=== PATIENT | female | born 2000 | race African-American/Black ===

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

== ENCOUNTER 2022-02-20 03:41 | Emergency (ER) | payer OTHER, SELFPAY ==
--- NOTE | ~2022-02-20 | CT_ITS ---
EXAMINATION: CT abdomen pelvis w con DATE: 02/20/2022 05:22 INDICATION: Right lower quadrant abdominal pain. TECHNIQUE: Computed tomography (CT) of the abdomen and pelvis was performed with 100 mL Omnipaque 350 intravenous contrast. Automated exposure control and iterative reconstruction technique were employe d. The dose-length product was 775.84 mGy-cm. COMPARISON: None. FINDINGS: The visualized portions of the lung bases are clear without pneumonia or pleural effusion. The heart size is normal. No pericardial effusion. There is mild pectus excavatum. The liver, gallbla dder, spleen, pancreas, adrenal glands, and kidneys are normal. There are no dilated loops of bowel. The appendix is normal. There is a 3.1 cm rim-enhancing cyst in left ovary with deformation, likely r uptured. There is a small volume of pelvic ascites. There are no pathologically enlarged lymph nodes. The bones are unremarkable. IMPRESSION: 1. 3.1 cm ruptured cyst in left ovary with small volume of pelvic ascites. Reviewed, dictated and finalized at location A.
[2022-02-20 03:44] VITALS: BP 117/90; PULSE 105; RESP 17; TEMP 36.2; O2SAT 100
--- NOTE | 2022-02-20 04:02 | ED.ABDPAIN ---
HPI - Abdominal Pain General Chief Complaint: Abdominal Pain Stated Complaint: Abd pain Time Seen by Provider: 02/20/22 03:59 History of Present Illness HPI narrative: Patient is a 21-year-old female complaining of right lower quadrant pain, 9 out of 10, sharp, nonradiating, started 30 minutes prior to arrival. Patient denies any nausea, vomiting, diarrhea, urinary symptoms, fever or chills. Related Data Home Medications Medication Instructions Recorded Confirmed etonogestrel 68 mg subdermal See Rx Instructions .Route .COMPLEX 08/21/21 08/21/21 implant (Nexplanon) lactulose 10 gram/15 mL oral 10 g PO PRN PRN Constipation 08/21/21 08/21/21 solution Allergies Allergy/AdvReac Type Severity Reaction Status Date / Time No Known Allergies Allergy Verified 02/20/22 03:46 Review of Systems Review of Systems: All systems reviewed & are unremarkable except as noted in HPI and below Constitutional: Constitutional: Denies body ache(s), Denies chills, Denies excessive sweating, Denies fatigue, Denies fever(s), Denies headache(s), Denies lethargy, Denies malaise, Denies weakness and Denies weight loss Eyes: Eyes: Denies blurry vision, Denies change in vision and Denies loss of vision ENT: Denies dizziness, Denies ear discharge, Denies headache(s), Denies lip swelling, Denies epistaxis, Denies nasal congestion, Denies neck pain, Denies throat swelling and Denies tongue swelling Cardiovascular: Cardiovascular: Denies chest pain, Denies chest pain at rest, Denies chest pain with activity, Denies diaphoresis, Denies rapid heart rate, Denies edema, Denies irregular heart rhythm, Denies lightheadedness, Denies palpitations, Denies dyspnea and Denies dyspnea on exertion Respiratory: Respiratory: Denies chest congestion, Denies cough, Denies hemoptysis, Denies dyspnea and Denies dyspnea on exertion Gastrointestinal: Gastrointestinal: Denies melena, Denies hematochezia, Denies diarrhea, Denies nausea, Denies vomiting and Denies hematemesis Musculoskeletal: Musculoskeletal: Denies abnormal gait, Denies deformity, Denies joint swelling, Denies limited range of motion, Denies neck pain and Denies numbness Neurologic: Denies Abnormal speech present, Denies abnormal gait, Denies confusion, Denies dizziness, Denies headache(s), Denies focal weakness, Denies loss of vision, Denies numbness, Denies Other visual disturbances, Denies Sensory deficit (Neuro) and Denies weakness Psychiatric: Psychiatric: Denies confusion, Denies depression, Denies auditory hallucinations, Denies homicidal ideation and Denies suicidal ideation Endocrine: Endocrine: Denies cold intolerance, Denies excessive sweating, Denies fatigue, Denies heat intolerance and Denies palpitations Hematologic/Lymphatic: Hematologic/Lymphatic: Denies easy bleeding and Denies easy bruising Allergic/Immunologic: Allergic/Immunologic: Denies lip swelling, Denies throat swelling and Denies tongue swelling PMFSH Past Medical History Medical History Healthy female Social History Social History Smoking status: Never smoker Gender identity (if verbalized by the patient): Female Exam Const: General: cooperative, healthy appearing, comfortable, no acute distress, well developed, alert and awake; No confusion Orientation/consciousness: oriented to person, oriented to place, oriented to time, patient oriented x3 and No confusion Limitations: no limitations HENMT: Head: normal to inspection, normocephalic and atraumatic Ears: hearing grossly normal bilaterally, TM normal on the right and TM normal on the left General nose exam: Normal external nose present, Normal nares present and No nasal discharge present Face and sinus: normal facial exam Mouth: Yes Normal oral and palatal mucosa present, Yes lip normal, Yes tongue normal and Yes oropharynx normal Throat: posterior
[2022-02-20 04:09] LABS: Basophils Absolute Auto 0.1 K/mm3 (0.0-0.1); Basophils Percent Auto 0.6 % (0.2-1.2); Eosinophils Absolute Auto 0.1 K/mm3 (0-0.3); Eosinophils Percent Auto 0.9 % (0-4.4); Hematocrit 40.5 % (37.0-47.0); Immature Granulocyte Absolute 0.05 K/mm3 (0.00-0.031); Immature Granulocyte Percent A 0.4 % (0-0.5); Lymphocytes Absolute Auto 4.55 K/mm3 (0.9-3.2); Lymphocytes Percent Auto 36.8 % (18.3-44.2); Mean Corpuscular HGB Conc 32.1 g/dl (32-36); Mean Corpuscular Hemoglobin 27.3 pg (26-34); Mean Corpuscular Volume 85.1 fl (80-100); Mean Platelet Volume 9.5 fl (7.4-10.4); Monocytes Percent Auto 8.3 % (2.6-8.5); Neutrophils Absolute Auto 6.6 K/mm3 (1.3-6.7); Platelet Count Result 353 k/mm3 (150-375); Red Blood Count 4.76 M/mm3 (4.2-5.4); Red Cell Distribution Width 13.3 % (11.5-14.5); White Blood Count 12.4 K/mm3 (4.5-10.0)
[2022-02-20 04:29] LABS: Alanine Aminotransferase 18 U/L (6-35); Albumin Level 4.3 g/dL (3.7-5.6); Alkaline Phosphatase 68 U/L (45-116); Anion Gap 11 mmol/L (8-16); Aspartate Amino Transferase 23 U/L (14-36); Bilirubin,Total 0.3 mg/dL (0.2-1.3); Blood Urea Nitrogen 8 mg/dL (8-21); Calcium 8.8 mg/dL (8.9-10.7); Carbon Dioxide 22 mmol/L (22-30); Chloride 104 mmol/L (98-107); Estimated Glomerular Filt Rate > 60; Glucose 106 mg/dL (65-110); Lipase 58 U/L (23-300); Potassium 4.1 mmol/L (3.4-5.0); Sodium 137 mmol/L (134-143)
[2022-02-20] MEDS: KETOROLAC 30 MG/ML VIAL (*BKC) IV PUSH (04:34)
[2022-02-20 04:56] VITALS: BP 133/86; PULSE 97; RESP 18; O2SAT 97
--- NOTE | 2022-02-20 05:03 | PC.NURSE ---
Pt to CT scan via stretcher at this time.
[2022-02-20 05:23] LABS: Add Urine Microscopic? NO; Appearance Urine Clear (Clear); Bilirubin Urine Negative (Negative); Blood Urine Negative (Negative); Color Urine Yellow (Yellow); Glucose Urine UA Negative (Negative); Ketones Urine Negative (Negative); Leukocyte Esterase Ur Negative LEU/UL (Negative); Nitrate Urine Negative (Negative); Protein Urine Negative (Negative); Specific Grav Ur >= 1.030 (1.001-1.035); Urobilinogen Urine 0.2 mg/dL (<2.0); pH Urine 5.5 (5.0-9.0)
[2022-02-20 05:32] LABS: Bacteria Urine Trace /hpf; Mucus Urine Rare /lpf; RBC Urine 0-2 /hpf (0-2); Squamous Epithelial Cell Urine Many /hpf (Few); WBC Urine 0-3 /hpf
[2022-02-20 06:03] VITALS: BP 123/68; PULSE 80; RESP 15; O2SAT 100
== END 2022-02-20 06:39 | disposition home or self-care (01) ==
LOC: ANHED 04:33
PROVIDERS: Emergency Provider Emergency Medicine; PCP Internal Medicine Gastroenterology
DX: N83.202 Unspecified ovarian cyst, left side (principal)
CPT/HCPCS: 36415; 74177; 80053; 81003; 81025; 83690; 85025; 99284; J1885; Q9967

== ENCOUNTER 2022-05-26 11:28 | Emergency (ER) | payer OTHER, SELFPAY ==
[2022-05-26 11:39] VITALS: BP 135/75; PULSE 79; RESP 20; TEMP 36.2; O2SAT 100
--- NOTE | 2022-05-26 12:16 | ED.URI ---
HPI - URI/Sore Throat General Chief Complaint: Upper Respiratory Infection Stated Complaint: Sore Throat,Shortness Of Breath Time Seen by Provider: 05/26/22 11:45 Source: patient Mode of arrival: ambulatory Limitations: no limitations History of Present Illness HPI Narrative: Ms. Welsh is a 22-year-old female patient presenting to clinic today with complaints of sore throat, cough, and nasal congestion causing some shortness of breath. She reports the symptoms have been going on for 2-3 days. She denies any fever or chills. MD elicited complaint: cough, sore throat and nasal congestion Related Data Home Medications Medication Instructions Recorded Confirmed etonogestrel 68 mg subdermal See Rx Instructions .Route .COMPLEX 08/21/21 05/26/22 implant (Nexplanon) lactulose 10 gram/15 mL oral 10 g PO PRN PRN Constipation 05/26/22 05/26/22 solution Allergies Allergy/AdvReac Type Severity Reaction Status Date / Time No Known Allergies Allergy Verified 05/26/22 11:41 Review of Systems Review of Systems: Pertinent positives per HPI. Patient denies any fever, chills, rash, headache, visual changes, dizziness, shortness of breath, chest pain, palpitations, nausea, vomiting, diarrhea, constipation, abdominal pain, or any urinary issues. [facility] Past Medical History Medical History Healthy female Social History Social History Smoking status: Never smoker Gender identity (if verbalized by the patient): Female Comments At the time of my signature, I reviewed and agree with the nursing past medical, surgical, social, and family history. There is no relevant family history pertinent to the patient complaint. Exam Narrative: General: Well-developed, well nourished, in no apparent distress Head: Normocephalic, atraumatic Eyes: Pupils equally round and reactive to light bilaterally, EOM intact, sclera and conjunctive clear, no discharge, lids normal Ears: TMs intact and dull, ear canals clear, no drainage, grossly hearing normal. Nose: Nares patent, clear nasal discharge, no inflammation, no sinus tenderness. Mouth: Oral pharynx without lesions or masses, good dentition, MMM. Oropharynx red with tonsillar swelling Neck: Supple, trachea midline, enlargement of anterior cervical nodes, no thyroid masses or goiter palpable. Cardio: Regular rate and rhythm, s1 and s2 normal, no murmur appreciated. Resp: Clear to auscultation bilaterally, no rhonchi, rales, wheezing or rubs Course Course Emergency Course: Portions of this record may have been created with voice recognition software. Level of Care: Express Care Visit Vital Signs Vital signs: Vital Signs Temperature 36.2 C L 05/26/22 11:39 Pulse Rate 79 05/26/22 11:39 Respiratory Rate 20 05/26/22 11:39 Blood Pressure 135/75 05/26/22 11:39 Pulse Oximetry 100 05/26/22 11:39 Oxygen Delivery Room Air 05/26/22 11:39 Temperature 36.2 C L 05/26/22 11:39 Pulse Rate 79 05/26/22 11:39 Respiratory Rate 20 05/26/22 11:39 Blood Pressure 135/75 05/26/22 11:39 Pulse Oximetry 100 05/26/22 11:39 Oxygen Delivery Room Air 05/26/22 11:39 Vital signs reviewed MDM - URI/Sore Throat MDM Narrative Medical decision making narrative: At the time of visit patient is resting comfortably on the exam table. Strep screen was obtained was positive in the clinic today. I will treat the patient with a course of amoxicillin. Supportive measures were discussed with the patient she voiced understanding of discharge instructions and agrees to treatment plan. Differential Diagnosis Differential diagnosis: Likely upper respiratory infection, otitis media, sinusitis, viral infection, bronchitis, influenza, pharyngitis and other (COVID) Discharge Plan Discharge Clinical Impression: Strep pharyngitis Patient Dispositi
== END 2022-05-26 12:20 | disposition home or self-care (01) ==
PROVIDERS: Emergency Provider Nurse Practitioner Family; PCP Internal Medicine Gastroenterology
DX: J02.0 Streptococcal pharyngitis (principal); Z86.16 Personal history of COVID-19
CPT/HCPCS: 87880; 99213; G0463

== ENCOUNTER 2022-09-25 15:09 | Outpatient (CLI) | payer OTHER, SELFPAY ==
--- NOTE | ~2022-09-25 | US_ITS ---
EXAMINATION: US pelvic complete w TV DATE: 09/25/2022 15:49 INDICATION: Left ovarian cyst TECHNIQUE: Multiple transabdominal and endovaginal sonographic images of the pelvis were obtained. COMPARISON: CT, 02/20/2022 FINDINGS: The uterus measures 7.2 x 3.7 x 4.2 cm. The endometrial complex measures 3 mm. The right ov lida measures 4.3 x 2.5 x 2.9 cm. The left ovary measures 4.1 x 1.9 x 1.7 cm. There is normal vascular flow in the ovaries. There is no free fluid in the pelvis. IMPRESSION: 1. Unremarkable pelvic ultrasound. Reviewed, dictated and finalized at location A. [employer] [facility] [employer]
== END 2022-09-25 15:10 | disposition home or self-care (01) ==
PROVIDERS: PCP Internal Medicine Gastroenterology; Visit Provider Physician Assistant
DX: N83.202 Unspecified ovarian cyst, left side (principal)
CPT/HCPCS: 76830; 76856

== ENCOUNTER 2023-03-05 16:25 | Emergency (ER) | payer OTHER, SELFPAY ==
[2023-03-05 16:53] VITALS: BP 133/58; PULSE 96; RESP 18; TEMP 36.6; O2SAT 100
--- NOTE | 2023-03-05 17:13 | ED.BACK ---
HPI - Back Pain/Injury General Chief Complaint: Neck Pain/Injury Stated Complaint: neck and shoulder stiffness Time Seen by Provider: 03/05/23 17:12 Source: patient and RN notes reviewed Mode of arrival: ambulatory Limitations: no limitations History of Present Illness HPI Narrative: 22-year-old female presents concern for left-sided neck and shoulder pain and stiffness. Reports she woke up with the pain this morning. She denies any injury or trauma. She denies weakness in any extremity. She reports neck pain when she moves her left arm. She has not taken any medication or other intervention today. She reports this has never happened to her before this badjuanita MD elicited complaint: other (neck pain) Related Data Home Medications Medication Instructions Recorded Confirmed lactulose 10 gram/15 mL oral 15 ml PO DAILY 03/05/23 03/05/23 solution Allergies Allergy/AdvReac Type Severity Reaction Status Date / Time No Known Allergies Allergy Verified 03/05/23 17:01 Review of Systems Review of Systems: CONSTITUTIONAL: Denies malaise, chills, sweats, or fever. CARDIOVASCULAR: Denies chest pain, palpitations, or edema. SKIN: Denies rash or itching. MUSCULOSKELETAL: Reports left-sided neck pain NEUROLOGIC: Denies numbness, weakness, or headache. All systems reviewed & are unremarkable except as noted in HPI and below PMFSH Past Medical History Medical History Healthy female Social History Social History Smoking status: Never smoker Gender identity (if verbalized by the patient): Female Comments At time of signature, agree with nursing past medical, surgical, social and family history. There is no relevant family history pertinent to the presenting complaint Exam Narrative: GENERAL: Well-appearing, well-nourished, and in no acute distress. HEAD: Normocephalic, atraumatic. EYES: PERRLA and EOMI. NECK: Supple. No lymphadenopathy. CHEST: Speaks in full sentences no respiratory distress. HEART: Regular rate and rhythm. Distal pulses palpable and equal, cap refill <3 seconds MUSCULOSKELETAL: Normal range of motion and strength in upper extremity. Normal sensation in dermatomal distributions with sensitivity to light touch and pain. No midline neck tenderness to palpation. No paraspinal tenderness. Transfers from sitting to standing. SKIN: Warm, dry, no rash. No ecchymosis, erythema, open wounds to neck. NEURO: No focal deficits. Alert and oriented x3. PSYCH: Normal mood and affect Course Course Emergency Course: Patient is aware of diagnosis, understands and agrees to treatment plan. Anticipatory guidance given. Patient agrees to follow-up as directed and is aware of reasons to seek care at the emergency department. Portions of this record may have been created with voice recognition software Level of Care: Express Care Visit Vital Signs Vital signs: Vital Signs Temperature 97.9 F 03/05/23 16:53 Pulse Rate 96 03/05/23 16:53 Respiratory Rate 18 03/05/23 16:53 Blood Pressure 133/58 L 03/05/23 16:53 Pulse Oximetry 100 03/05/23 16:53 Oxygen Delivery Room Air 03/05/23 16:53 Temperature 97.9 F 03/05/23 16:53 Pulse Rate 96 03/05/23 16:53 Respiratory Rate 18 03/05/23 16:53 Blood Pressure 133/58 L 03/05/23 16:53 Pulse Oximetry 100 03/05/23 16:53 Oxygen Delivery Room Air 03/05/23 16:53 Reviewed. MDM - Back Pain/Injury MDM Narrative Medical decision making narrative: Patients pain is consistent with musculoskeletal etiology. No signs of neurological or vascular compromise on exam. Compartments and tissues are soft without signs of compartment syndrome. Pain is felt appropriate for further evaluation on an outpatient basis. Critical Care Time Critical Care Time Critical Care Time: No Discharge Plan Discharge Clinical Impre
== END 2023-03-05 17:30 | disposition home or self-care (01) ==
PROVIDERS: Emergency Provider Nurse Practitioner; PCP Internal Medicine Gastroenterology
DX: M43.6 Torticollis (principal)
CPT/HCPCS: 99213; G0463

== ENCOUNTER 2023-07-13 12:21 | Outpatient (CLI) | payer OTHER, SELFPAY ==
--- NOTE | ~2023-07-13 | XR_ITS ---
EXAMINATION: XR sinus min 3V INDICATION: Wheezing, paranasal sinus congestion TECHNIQUE: Five views of the paranasal sinuses are obtained. COMPARISON: None available FINDINGS: The frontal sinuses are hypoplastic. No definite opacification of the paranasal sinuses is identified. The facial bones are unremarkable. The soft tissues appear normal. IMPRESSION: 1. No definite evidence of sinus disease. If there is high clinical suspicion for sinus disease, CT o f the sinuses would be recommended. Reviewed, dictated and finalized at location B. IOLOGY RN IMPRESSION: 1. No definite evidence of sinus disease. If there is high clinical suspicion f or sinus disease, CT of the sinuses would be recommended.
--- NOTE | ~2023-07-13 | XR_ITS ---
Clinical Indication: Wheezing PA and lateral views of the chest: Comparison: 10/24/2019 Findings: The lungs are clear, without evidence of focal consolidation or pleural effusion. Cardiome diastinal silhouette is within normal limits. Bones and soft tissues are unremarkable. Impression: Normal chest. Reviewed, dictated and finalized at [facility]. ERY HAND Impression: Normal chest.
== END 2023-07-13 12:22 | disposition home or self-care (01) ==
PROVIDERS: PCP Internal Medicine Gastroenterology; Visit Provider Internal Medicine Gastroenterology
DX: R06.2 Wheezing (principal)
CPT/HCPCS: 70220; 71046

== ENCOUNTER 2023-07-21 09:27 | Emergency (ER) | payer OTHER, SELFPAY ==
[2023-07-21 09:36] VITALS: BP 139/63; PULSE 87; RESP 18; TEMP 35.9; O2SAT 99
--- NOTE | 2023-07-21 10:14 | ED.URI ---
HPI - URI/Sore Throat General Chief Complaint: Upper Respiratory Infection Stated Complaint: Sinus/Ears Irritation Time Seen by Provider: 07/21/23 10:06 Source: patient and RN notes reviewed Mode of arrival: ambulatory Limitations: no limitations History of Present Illness HPI Narrative: Patient presents today with a 3 day history of nasal congestion and sinus pressure, cough, rhinorrhea. Denies fever, shortness of breath, sore throat. Denies known sick contacts. She has been taking Sudafed, NyQuil, and Flonase with little relief. Related Data Home Medications Medication Instructions Recorded Confirmed lactulose 10 gram/15 mL oral 15 ml PO DAILY 03/05/23 07/21/23 solution norethindrone 1 mg-ethinyl 1 tablet PO DAILY 07/21/23 07/21/23 estradiol 10 mcg (24)-iron 10 mcg(2) tablet (Lo Loestrin Fe) Allergies Allergy/AdvReac Type Severity Reaction Status Date / Time No Known Allergies Allergy Verified 07/21/23 09:52 Review of Systems Review of Systems: CONSTITUTIONAL: Denies body aches, fever, chills, or sweats. EYES: Denies visual changes, redness, or discharge. ENT: Denies sore throat, or otalgia.+ sinus pressure, congestion, rhinorrhea CARDIOVASCULAR: Denies chest pain, palpitations, or edema. RESPIRATORY: Denies dyspnea.+ cough GASTROINTESTINAL: Denies abdominal pain, nausea, vomiting, or diarrhea. GENITOURINARY: Denies dysuria or hematuria. SKIN: Denies rash, itching, or wounds. MUSCULOSKELETAL: Denies back pain, joint pain, or myalgia. NEUROLOGIC: Denies headache, numbness, tingling, or weakness. PSYCH: Denies depression or anxiety. [facility] Past Medical History Medical History Healthy female Social History Social History Smoking status: Never smoker Gender identity (if verbalized by the patient): Female Comments At time of signature, I have reviewed and agree with nursing past medical, surgical, social and family history unless otherwise noted. Please see nursing chart for further information. There is no relevant family history pertinent to the presenting complaint Exam Narrative: GENERAL: Mildly-appearing, well-nourished, and in no acute distress. HEAD: Normocephalic, atraumatic. EYES: EOMI. No redness or drainage. Conjunctivae normal. ENT: Mucous membranes pink and moist. Nares severely congested. No rhinorrhea. TMs normal bilaterally. Throat normal. Uvula midline. NECK: Normal AROM. Supple. No lymphadenopathy. CHEST: No respiratory distress. Clear to auscultation. HEART: Regular rate and rhythm. No murmur appreciated. EXTREMITIES: Normal range of motion. No edema. SKIN: Warm, dry, no rash. Capillary refill normal. Normal skin turgor. NEURO: No focal deficits. Alert and oriented x3. Gait steady. PSYCH: Normal affect. No signs of depression or anxiety. Course Course Level of Care: Express Care Visit Vital Signs Vital signs: Vital Signs Temperature 96.6 F L 07/21/23 09:36 Pulse Rate 87 07/21/23 09:36 Respiratory Rate 18 07/21/23 09:36 Blood Pressure 139/63 07/21/23 09:36 Pulse Oximetry 99 07/21/23 09:36 Oxygen Delivery Room Air 07/21/23 09:36 Temperature 96.6 F L 07/21/23 09:36 Pulse Rate 87 07/21/23 09:36 Respiratory Rate 18 07/21/23 09:36 Blood Pressure 139/63 07/21/23 09:36 Pulse Oximetry 99 07/21/23 09:36 Oxygen Delivery Room Air 07/21/23 09:36 Reviewed MDM - URI/Sore Throat MDM Narrative Medical decision making narrative: Influenza and COVID negative. Symptoms likely viral in etiology discussed [id number] treatment and duration of illness. Anticipatory guidance given Differential Diagnosis Differential diagnosis: Likely upper respiratory infection, sinusitis, viral infection, influenza and other (COVID-19) Lab Data Attestation: I reviewed the patient's lab results. Lab results
== END 2023-07-21 10:41 | disposition home or self-care (01) ==
PROVIDERS: Emergency Provider Nurse Practitioner; PCP Internal Medicine Gastroenterology
DX: J06.9 Acute upper respiratory infection, unspecified (principal); Z20.822 Contact with and (suspected) exposure to COVID-19
CPT/HCPCS: 87426; 87804; 99213; C9803; G0463

== ENCOUNTER 2023-08-20 22:02 | Emergency (ER) | payer OTHER, SELFPAY ==
[2023-08-20 22:20] VITALS: BP 116/67; PULSE 74; RESP 16; TEMP 36.8; O2SAT 100
--- NOTE | 2023-08-20 22:22 | PC.NURSE ---
This RN unable to obtain urine sample at this time, as pt states she is unable to stand/ambulate due to pain. Pt resting in wheelchair, in no obvious distress.
[2023-08-20 22:30] LABS: Basophils Absolute Auto 0.1 K/mm3 (0.0-0.1); Basophils Percent Auto 0.6 % (0.2-1.2); Eosinophils Absolute Auto 0.3 K/mm3 (0-0.3); Eosinophils Percent Auto 2.4 % (0-4.4); Hematocrit 37.2 % (37.0-47.0); Hemoglobin 12.1 g/dL (12.0-15.0); Immature Granulocyte Absolute 0.07 K/mm3 (0.00-0.031); Immature Granulocyte Percent A 0.5 % (0-0.5); Lymphocytes Absolute Auto 4.21 K/mm3 (0.9-3.2); Lymphocytes Percent Auto 30.3 % (18.3-44.2); Mean Corpuscular HGB Conc 32.5 g/dl (32-36); Mean Corpuscular Hemoglobin 27.6 pg (26-34); Mean Corpuscular Volume 84.9 fl (80-100); Mean Platelet Volume 9.5 fl (7.4-10.4); Monocytes Absolute Auto 1.1 K/mm3 (0.1-0.6); Monocytes Percent Auto 8.1 % (2.6-8.5); Neutrophils Absolute Auto 8.1 K/mm3 (1.3-6.7); Neutrophils Percent Auto 58.1 % (45.5-73.1); Platelet Count Result 314 k/mm3 (150-375); Red Blood Count 4.38 M/mm3 (4.2-5.4); Red Cell Distribution Width 13.1 % (11.5-14.5); White Blood Count 13.9 K/mm3 (4.5-10.0)
[2023-08-20 22:40] LABS: Alanine Aminotransferase 18 U/L (6-35); Albumin Level 3.8 g/dL (3.5-5.1); Alkaline Phosphatase 53 U/L (38-126); Anion Gap 8 mmol/L (8-16); Aspartate Amino Transferase 21 U/L (14-36); Bilirubin,Total 0.3 mg/dL (0.2-1.3); Blood Urea Nitrogen 16 mg/dL (7-17); Calcium 8.8 mg/dL (8.4-10.2); Carbon Dioxide 21 mmol/L (22-30); Chloride 105 mmol/L (98-107); Estimated CRCL calculation 100 ml/min; Estimated Glomerular Filt Rate > 60; Glucose 102 mg/dL (65-110); Lipase 69 U/L (23-300); Potassium 3.6 mmol/L (3.4-5.0); Sodium 134 mmol/L (137-145)
--- NOTE | 2023-08-20 23:26 | PC.NURSE ---
Patient requested for the IV placed by EMS to be taken out. States that she does not want to wait to be moved to a room.
== END 2023-08-20 23:26 | disposition left against medical advice (07) ==
LOC: ANHED 23:32
PROVIDERS: Emergency Provider Emergency Medicine; PCP Internal Medicine Gastroenterology
DX: R10.32 Left lower quadrant pain (principal)
CPT/HCPCS: 36415; 80053; 83690; 85025; 99199

== ENCOUNTER 2023-09-30 11:02 | Emergency (ER) | payer OTHER, SELFPAY ==
[2023-09-30 11:21] VITALS: BP 134/89; PULSE 85; RESP 16; TEMP 36.4; O2SAT 100
--- NOTE | 2023-09-30 11:34 | ED.URI ---
HPI - URI/Sore Throat General Chief Complaint: Upper Respiratory Infection Stated Complaint: headache,throat hurts, hurts to swallow Time Seen by Provider: 09/30/23 11:34 History of Present Illness HPI Narrative: 23 y/o female presented for c/o sore throat x1 week. Endorses mild nasal congestion, headache, and cough. Taking Dayquil for symptoms. denies sob, wheezing, n/v/d/f/c. Related Data Home Medications Medication Instructions Recorded Confirmed lactulose 10 gram/15 mL oral 15 ml PO DAILY 03/05/23 07/21/23 solution norethindrone 1 mg-ethinyl 1 tablet PO DAILY 07/21/23 09/30/23 estradiol 10 mcg (24)-iron 10 mcg(2) tablet (Lo Loestrin Fe) Allergies Allergy/AdvReac Type Severity Reaction Status Date / Time No Known Allergies Allergy Verified 09/30/23 11:16 Review of Systems Review of Systems: CONSTITUTIONAL: Denies body aches, fever, chills, or sweats. EYES: Denies visual changes, redness, or discharge. ENT: reports sore throat, rhinorrhea, congestion, denies otalgia. CARDIOVASCULAR: Denies chest pain, palpitations, or edema. RESPIRATORY: reports cough Denies dyspnea. GASTROINTESTINAL: Denies abdominal pain, nausea, vomiting, or diarrhea. SKIN: Denies rash, itching, or wounds. MUSCULOSKELETAL: Denies back pain, joint pain, or myalgia. NEUROLOGIC: Denies headache PMFSH Past Medical History Medical History Healthy female Social History Social History Smoking status: Never smoker Gender identity (if verbalized by the patient): Female Exam Narrative: GENERAL: mildly Ill-appearing, no acute distress. EYES: conjunctivae clear ENT: Mucous membranes moist. TMs pearly gonsales with normal light reflex bilaterally; no tragal tenderness. Oropharynx mildly erythematous without lesions. Tonsils enlarged 2+ and without exudate. No drooling, no hoarseness, no trismus, uvula midline. No tripod positioning, hot potato voice, or soft palate swelling. NECK: Supple. No lymphadenopathy CHEST: Clear to auscultation, breath sounds equal. No respiratory distress, speaks in full sentences. HEART: Regular rate and rhythm. No murmur heard. SKIN: Warm, dry, no rash. NEURO: Alert and oriented x3. Course Course Emergency Course: Patient is aware of diagnosis, understands and agrees to treatment plan. Anticipatory guidance given. Patient agrees to follow-up as directed and is aware of reasons to seek care at the emergency department. Portions of this record may have been created with voice recognition software Level of Care: Express Care Visit Vital Signs Vital signs: Vital Signs Temperature 97.5 F L 09/30/23 11:21 Pulse Rate 85 09/30/23 11:21 Respiratory Rate 16 09/30/23 11:21 Blood Pressure 134/89 09/30/23 11:21 Pulse Oximetry 100 09/30/23 11:21 Temperature 97.5 F L 09/30/23 11:21 Pulse Rate 85 09/30/23 11:21 Respiratory Rate 16 09/30/23 11:21 Blood Pressure 134/89 09/30/23 11:21 Pulse Oximetry 100 09/30/23 11:21 MDM - URI/Sore Throat MDM Narrative Medical decision making narrative: POS strep result reviewed with pt. Advise supportive treatments. Patient is appropriate for outpatient treatment and follow-up. Differential Diagnosis Differential diagnosis: Likely upper respiratory infection, viral infection and pharyngitis Discharge Plan Discharge Clinical Impression: Strep pharyngitis Patient Disposition: Home, Self-Care Condition: Stable Instructions: Antibiotic Form, Strep Throat (ED) Additional Instructions: - Take the antibiotic as directed. Fever and sore throat typically resolve within one to three days. Most patients can return to work, after 12 to 24 hours of antibiotic therapy, provided you are fever free and otherwise well. -Eat and drink things that are easy to swallow, like soft foods, cool liquids, tea with h
== END 2023-09-30 11:44 | disposition home or self-care (01) ==
PROVIDERS: Emergency Provider Nurse Practitioner Family; PCP Internal Medicine Gastroenterology
DX: J02.0 Streptococcal pharyngitis (principal); Z20.822 Contact with and (suspected) exposure to COVID-19
CPT/HCPCS: 87426; 87804; 87880; 99213; G0463

== ENCOUNTER 2023-12-25 08:25 | Emergency (ER) | payer OTHER, SELFPAY ==
--- NOTE | 2023-12-25 08:28 | ED.URI ---
HPI - URI/Sore Throat General Chief Complaint: Upper Respiratory Infection Stated Complaint: sob and throat pain Time Seen by Provider: 12/25/23 08:36 Source: patient and RN notes reviewed Mode of arrival: ambulatory Limitations: no limitations History of Present Illness HPI Narrative: 23-year-old female presents with concern for 3 day history of cough, chest congestion, headache, sore throat, wheezing. She denies any history of asthma. She denies fever, body aches, chills, sweats. She denies taking any [id number] medication. MD elicited complaint: cough and sore throat Related Data Home Medications Medication Instructions Recorded Confirmed norethindrone 1 mg-ethinyl 1 tablet PO DAILY 07/21/23 12/25/23 estradiol 10 mcg (24)-iron 10 mcg(2) tablet (Lo Loestrin Fe) Allergies Allergy/AdvReac Type Severity Reaction Status Date / Time No Known Allergies Allergy Verified 12/25/23 08:30 Review of Systems Review of Systems: CONSTITUTIONAL: Denies malaise, chills, sweats, or fever. EYES: Denies visual changes, redness, or discharge. ENT: Reports sore throat. CARDIOVASCULAR: Denies chest pain, palpitations, or edema. RESPIRATORY: Reports cough, chest congestion, wheezing, dyspnea. GASTROINTESTINAL: Denies abdominal pain, nausea, vomiting, diarrhea SKIN: Denies rash or itching. MUSCULOSKELETAL: Denies myalgia. NEUROLOGIC: Reports headache. All systems reviewed & are unremarkable except as noted in HPI and below PMFSH Past Medical History Medical History Healthy female Social History Social History Smoking status: Never smoker Gender identity (if verbalized by the patient): Female Comments At time of signature, agree with nursing past medical, surgical, social and family history. There is no relevant family history pertinent to the presenting complaint Exam Narrative: GENERAL: Well-appearing, well-nourished, and in no acute distress. HEAD: Normocephalic EYES: PERRLA, conjunctivae clear ENT: Nares clear. Mucous membranes moist. TM pearly gonsales with dull light reflex bilaterally; no tragal tenderness. Oropharynx erythematous without lesions. Tonsils not enlarged and without exudate, no drooling, no hoarseness, no trismus, uvula midline. NECK: Supple. No lymphadenopathy CHEST: Inspiratory and expiratory wheeze throughout, aeration fair, breath sounds equal. No rhonchi, rales, or stridor. No respiratory distress, speaks in full sentences. HEART: Regular rate and rhythm. No murmur heard. SKIN: Warm, dry, no rash. NEURO: Alert and oriented x3. PSYCH: Normal mood and affect Course Course Emergency Course: Patient is aware of diagnosis, understands and agrees to treatment plan. Anticipatory guidance given. Patient agrees to follow-up as directed and is aware of reasons to seek care at the emergency department. Portions of this record may have been created with voice recognition software Level of Care: Express Care Visit Reevaluation(s) Reevaluation #1: Improved lung sounds, improved aeration after DuoNeb Date: 12/25/23 Time: 09:16 Vital Signs Vital signs: Reviewed. MDM - URI/Sore Throat MDM Narrative Medical decision making narrative: Differential diagnosis considered: Crum virus, strep pharyngitis, allergic rhinitis, upper respiratory tract infection, sinusitis, rhinosinusitis, nasopharyngitis. viral pharyngitis, otitis media, otitis externa, pneumonia, bronchitis, viral cough syndrome, viral syndrome, and influenza. Exam findings show no acute concerns or changes; patient is non-toxic appearing and is in no distress. Patient is appropriate for outpatient treatment and follow-up. Lab Data Attestation: I reviewed the patient's lab results. Critical Care Time Critical Care Time Critical Care Time: No Discharge Plan Discharge Clinical Impression: Bronchitis Patien
[2023-12-25 08:35] VITALS: BP 128/76; PULSE 92; RESP 16; TEMP 36.1; O2SAT 98
[2023-12-25 08:46] VITALS: PULSE 92; RESP 18; O2SAT 98
[2023-12-25] MEDS: IPRATROPIUM 0.5 MG/ALBUTEROL SULFATE 2.5 MG AMPUL.NEB 3 ML INHALATION (08:46)
[2023-12-25 08:59] VITALS: PULSE 98; RESP 18; O2SAT 98
== END 2023-12-25 09:15 | disposition home or self-care (01) ==
PROVIDERS: Emergency Provider Nurse Practitioner; PCP Internal Medicine Gastroenterology
DX: J40 Bronchitis, not specified as acute or chronic (principal)
CPT/HCPCS: 87081; 87880; 94640; 99213; G0463

== ENCOUNTER 2024-02-08 14:34 | Emergency (ER) | payer OTHER, SELFPAY ==
--- NOTE | 2024-02-08 14:50 | ED.URI ---
HPI - URI/Sore Throat General Chief Complaint: Upper Respiratory Infection Stated Complaint: chills,bodyache Time Seen by Provider: 02/08/24 14:50 Source: patient Mode of arrival: ambulatory Limitations: no limitations History of Present Illness HPI Narrative: Salma is a 23-year-old female who presents to the clinic today with complaints of fevers, chills, and body aches for 2-3 days. She denies any known sick contacts. She has been taking ibuprofen for her body aches with minimal improvement. She also reports nausea, vomiting, and right lower back pain. MD elicited complaint: sore throat and nasal congestion Related Data Home Medications Medication Instructions Recorded Confirmed norethindrone 1 mg-ethinyl 1 tablet PO DAILY 07/21/23 12/25/23 estradiol 10 mcg (24)-iron 10 mcg(2) tablet (Lo Loestrin Fe) Allergies Allergy/AdvReac Type Severity Reaction Status Date / Time No Known Allergies Allergy Verified 12/25/23 08:30 Review of Systems Review of Systems: Pertinent positives per HPI. Patient denies any rash, visual changes, dizziness, cough, shortness of breath, chest pain, palpitations, diarrhea, constipation, or abdominal pain PMFSH Past Medical History Medical History Healthy female Social History Social History Smoking status: Never smoker Gender identity (if verbalized by the patient): Female Comments At the time of my signature, I reviewed and agree with the nursing past medical, surgical, social, and family history. There is no relevant family history pertinent to the patient complaint. Exam Narrative: General: Well-developed, well nourished, in no apparent distress Head: Normocephalic, atraumatic Eyes: Pupils equally round, EOM intact, sclera and conjunctive clear, no discharge, lids normal Nose: Nares patent, no discharge Neck: Supple, trachea midline Cardio: Regular rate and rhythm, s1 and s2 normal, no murmur appreciated. Resp: Clear to auscultation bilaterally, no rhonchi, rales, wheezing or rubs Abdomen: Normal bowel sounds, no abdominal tenderness, right CVA tenderness to percussion Course Course Emergency Course: Portions of this record may have been created with voice recognition software. Level of Care: Express Care Visit Vital Signs Vital signs: Vital Signs Temperature 38.3 C H 02/08/24 14:57 Pulse Rate 120 H 02/08/24 14:57 Respiratory Rate 20 02/08/24 14:57 Blood Pressure 147/73 H 02/08/24 14:57 Pulse Oximetry 100 02/08/24 14:57 Oxygen Delivery Room Air 02/08/24 14:57 Temperature 38.3 C H 02/08/24 15:39 Pulse Rate 120 H 02/08/24 14:57 Respiratory Rate 20 02/08/24 14:57 Blood Pressure 147/73 H 02/08/24 14:57 Pulse Oximetry 100 02/08/24 14:57 Oxygen Delivery Room Air 02/08/24 14:57 Vital signs reviewed MDM - URI/Sore Throat MDM Narrative Medical decision making narrative: At the time of visit patient is resting uncomfortably on the exam table. Patient is ill appearing but in no acute distress. Labs: COVID, flu, and strep test were obtained and negative we will send strep for culture. Urinalysis is negative for any sign of infection. Plan: I suspect patient has viral syndrome. Supportive measures were discussed with the patient and they voiced understanding discharge instructions and agrees to treatment plan. Return precautions reviewed Differential Diagnosis Differential diagnosis: Likely upper respiratory infection, otitis media, sinusitis, viral infection, bronchitis, influenza, pharyngitis and other (Urinary tract infection) Lab Data Labs: Lab Results 02/08/24 02/08/24 02/08/24 Range/Units 15:05 15:21 16:10 POC Urine Color Yellow POC Urine Clarity Clear POC Urine pH 7.5 POC Ur Specif [place] 1.020 POC Urine Protein Negative POC Ur Glucose (U
[2024-02-08 14:57] VITALS: BP 147/73; PULSE 120; RESP 20; TEMP 38.3; O2SAT 100
[2024-02-08 15:23] LABS: EDINFLUASCREEN Negative; EDINFLUBSCREEN Negative
[2024-02-08 15:39] VITALS: TEMP 38.3
[2024-02-08] MEDS: ACETAMINOPHEN 500 MG TABLET 1000 MG PO (15:39)
[2024-02-08 16:13] LABS: EDSTREPNEGPOS1 Presumptive Negative; EDUAAPPEAR Clear; EDUABILI Negative; EDUABLOOD Negative; EDUACOLOR1 Yellow; EDUAGLUCOSE Negative; EDUAKETONE Negative; EDUALEUKO Negative; EDUANITRATE Negative; EDUAPH 7.5; EDUAPROTEIN Negative
[2024-02-08 16:29] VITALS: TEMP 36.6
== END 2024-02-08 16:29 | disposition home or self-care (01) ==
PROVIDERS: Emergency Provider Nurse Practitioner Family; PCP Internal Medicine Gastroenterology
DX: B34.9 Viral infection, unspecified (principal); Z20.822 Contact with and (suspected) exposure to COVID-19
CPT/HCPCS: 81003; 81025; 87081; 87426; 87804; 87880; 99213; A9270; G0463

== ENCOUNTER 2024-04-03 08:02 | Emergency (ER) | payer OTHER, SELFPAY ==
--- NOTE | 2024-04-03 08:09 | ED.URI ---
HPI - URI/Sore Throat General Chief Complaint: Upper Respiratory Infection Stated Complaint: strep symptoms Time Seen by Provider: 04/03/24 08:13 Source: patient, RN notes reviewed and old records reviewed Mode of arrival: ambulatory Limitations: no limitations History of Present Illness HPI Narrative: [age] year female to [facility] for complaint of sore, scratchy throat that started this morning. Patient has not attempted to treat at home. Patient hypertensive in triage. patient states that her boyfriend is currently being treated for pneumonia and was just discharged from a 2 week hospitalization. Patient is concerned about having something that is contagious and being around him. Patient requesting strep throat test. Patient denies difficulty swallowing, shortness of breath, fever, GI complaints, headache, ear pain, allergies, pertinent medical history. Patient able to tolerate fluids by mouth. Respirations even and nonlabored. Patient resting in exam room in no acute distress. Related Data Home Medications Medication Instructions Recorded Confirmed norethindrone 1 mg-ethinyl 1 tablet PO DAILY 07/21/23 04/03/24 estradiol 10 mcg (24)-iron 10 mcg(2) tablet (Lo Loestrin Fe) linaclotide 290 mcg capsule 290 mcg DIRECTED 04/03/24 04/03/24 (Linzess) Allergies Allergy/AdvReac Type Severity Reaction Status Date / Time No Known Allergies Allergy Verified 12/25/23 08:30 Review of Systems Review of Systems: All systems reviewed & are unremarkable except as noted in HPI and below Constitutional: Constitutional: Reports no additional constitutional complaints Eyes: Eyes: Reports no additional eye complaints ENT: Reports as per HPI and Reports sore throat Cardiovascular: Cardiovascular: Reports no additional cardiovascular complaints, Denies chest pain and Denies dyspnea Respiratory: Respiratory: Reports no additional respiratory complaints, Denies cough and Denies dyspnea Musculoskeletal: Musculoskeletal: Reports no additional musculoskeletal complaints Neurologic: Reports system reviewed and no additional complaints, except as documented Psychiatric: Psychiatric: Reports no additional psychiatric complaints PMFSH Past Medical History Medical History Healthy female Social History Social History Smoking status: Never smoker Gender identity (if verbalized by the patient): Female Comments At the time of my signature, I reviewed and agree with the nursing past medical, surgical, social, and family history. There is no relevant family history pertinent to the patient complaint. Exam Const: General: cooperative, healthy appearing, comfortable, no acute distress, alert and well nourished Nutritional Appearance: well nourished Orientation/consciousness: patient oriented x3 Limitations: no limitations HENMT: Head: normal to inspection Ears: external ears normal Face/Nose/Sinus: Normal external nose present, Normal nares present, normal facial exam, No erythema and No edema Face and sinus: normal facial exam, no erythema and no edema Mouth: Yes Normal oral and palatal mucosa present Throat: posterior oropharynx abnormal erythema Eyes: General: appearance normal, both eyes and all related structures Neck: Neck: normal visual inspection, full ROM and no meningeal signs Lymphatic: no lymphadenopathy noted and no lymphedema noted Chest: Chest palpation & inspection: normal inspection of the chest Resp: Effort & Inspection: normal respiratory effort and able to speak in complete sentences Auscultation: clear to auscultation bilaterally Cardio: Jugular venous distension: no JVD Rate: regular rate Rhythm: regular rhythm Back/Spine/Pelvis: Cervical Spine: cervical ROM normal Skin: General skin exam: normal color, no rashes or lesions noted and turgor normal Neuro: General:
[2024-04-03 08:11] VITALS: BP 142/63; PULSE 97; RESP 18; TEMP 36.1; O2SAT 100
[2024-04-03 08:35] LABS: EDSTREPNEGPOS1 Negative (Negative)
== END 2024-04-03 08:40 | disposition home or self-care (01) ==
PROVIDERS: Emergency Provider Nurse Practitioner Family; PCP Internal Medicine
DX: J02.9 Acute pharyngitis, unspecified (principal)
CPT/HCPCS: 87081; 87880; 99213; G0463

== ENCOUNTER 2024-04-06 10:01 | Emergency (ER) | payer OTHER, SELFPAY ==
[2024-04-06 10:09] VITALS: BP 125/72; PULSE 91; RESP 18; TEMP 36.2; O2SAT 100
[2024-04-06 10:39] LABS: EDINFLUASCREEN Negative (Negative); EDINFLUBSCREEN Negative (Negative)
[2024-04-06 10:39] LABS: EDCOVIDSCREEN Positive (Negative)
--- NOTE | 2024-04-06 10:48 | ED.URI ---
HPI - URI/Sore Throat General Chief Complaint: Upper Respiratory Infection Stated Complaint: headache/ sore throat/ cough/ bodyache Source: patient Mode of arrival: ambulatory Limitations: no limitations History of Present Illness HPI Narrative: 24-year-old female presents to [facility] with complaints of 4 day history of sore throat, cough, congestion, runny nose, body aches and chills. Patient has been taking [id number] Mucinex with little relief. Patient denies fever, nausea vomiting or diarrhea. Patient was evaluated here 4 days ago, had negative strep test completed at that time and was diagnosed with a viral illness. MD elicited complaint: cough, rhinorrhea and nasal congestion Onset (ago): day(s) (4) Able to tolerate fluids by mouth: Yes Treatments prior to arrival: cold medicine Related Data Home Medications Medication Instructions Recorded Confirmed norethindrone 1 mg-ethinyl 1 tablet PO DAILY 07/21/23 04/03/24 estradiol 10 mcg (24)-iron 10 mcg(2) tablet (Lo Loestrin Fe) linaclotide 290 mcg capsule 290 mcg DIRECTED 04/03/24 04/03/24 (Linzess) multivit with minerals-iron 18 tablet PO 04/06/24 mg-folic ac 400 mcg-vit K 25 mcg tablet (Adults Multivitamin) Allergies Allergy/AdvReac Type Severity Reaction Status Date / Time No Known Allergies Allergy Verified 04/06/24 10:12 Review of Systems Constitutional: Constitutional: Reports chills, Reports fatigue, Denies fever(s) and Denies weakness ENT: Denies vertigo, Denies dizziness, Denies epistaxis, Reports nasal congestion and Reports sore throat Cardiovascular: Cardiovascular: Denies chest pain Respiratory: Respiratory: Reports cough, Denies dyspnea and Denies wheezing Gastrointestinal: Gastrointestinal: Denies diarrhea, Denies nausea and Denies vomiting Integumentary/Breasts: Skin/Breast: Denies erythema and Denies rash Neurologic: Denies syncope and Denies headache(s) [facility] Past Medical History Medical History Healthy female Social History Social History Smoking status: Never smoker Gender identity (if verbalized by the patient): Female Comments At time of signature, I agree with nursing past medical, surgical, social and family history. There is no relevant family history pertinent to the presenting complaint. Exam Const: General: healthy appearing and no acute distress Nutritional Appearance: well nourished Orientation/consciousness: patient oriented x3 Limitations: no limitations HENMT: Head: normal to inspection Ears: external ears normal, TM's normal bilaterally and EAC's normal Face/Nose/Sinus: Normal external nose present Face and sinus: normal facial exam Mouth: Yes Normal oral and palatal mucosa present, Yes lip normal and Yes moist mucous membranes Teeth and gingiva: dentition normal Throat: posterior oropharynx normal and uvula midline Eyes: Conjunctivae: conjunctivae normal Neck: Neck: normal visual inspection Chest: Chest palpation & inspection: normal inspection of the chest Resp: Effort & Inspection: normal respiratory effort and not labored Auscultation: clear to auscultation bilaterally, no crackles, no rales, no rhonchi and no wheezes Cardio: Rate: regular rate Rhythm: regular rhythm Heart sounds: no murmurs Skin: General skin exam: normal color Rashes: no rashes Neuro: General: patient oriented x3 Speech: normal speech Gait exam (Neuro): Normal gait present Psych: Affect: normal affect Attitude: cooperative Course Course Level of Care: Express Care Visit Vital Signs Vital signs: Vital Signs Temperature 36.2 C L 04/06/24 10:09 Pulse Rate 91 04/06/24 10:09 Respiratory Rate 18 04/06/24 10:09 Blood Pressure 125/72 04/06/24 10:09 Pulse Oximetry 100 04/06/24 10:09 Oxygen Delivery Room Air 04/06/24 10:09 Temperature 36.2 C L 04/06/24
== END 2024-04-06 11:00 | disposition home or self-care (01) ==
PROVIDERS: Emergency Provider Nurse Practitioner Family; PCP Internal Medicine
DX: U07.1 COVID-19 (principal)
CPT/HCPCS: 87635; 87804; 99213; G0463

== ENCOUNTER 2024-06-02 17:02 | Emergency (ER) | payer OTHER, SELFPAY ==
[2024-06-02 17:12] VITALS: BP 146/85; PULSE 93; RESP 18; TEMP 36.3; O2SAT 100
--- NOTE | 2024-06-02 17:37 | ED.URI ---
HPI - URI/Sore Throat General Chief Complaint: Upper Respiratory Infection Stated Complaint: congestion Time Seen by Provider: 06/02/24 17:39 Source: patient, RN notes reviewed and old records reviewed Mode of arrival: ambulatory Limitations: no limitations History of Present Illness HPI Narrative: patient presents with complaints of sinus pain and pressure, postnasal drainage, productive cough, body aches. She reports symptoms began about 1 week ago. She reports that she occasionally will begin to feel better, but then immediately starts feeling worse when she engages in activities. She denies any fever, chills, sweats. She does endorse feeling more tired than normal. States that she has a backache made worse with cough, also has headache. Has been taking [id number] medications for her symptoms minimal relief. 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 had many sick contacts Related Data Home Medications Medication Instructions Recorded Confirmed norethindrone 1 mg-ethinyl 1 tablet PO DAILY 07/21/23 06/02/24 estradiol 10 mcg (24)-iron 10 mcg(2) tablet (Lo Loestrin Fe) linaclotide 290 mcg capsule 290 mcg DIRECTED 04/03/24 06/02/24 (Linzess) multivit with minerals-iron 18 1 tablet PO DAILY 04/06/24 06/02/24 mg-folic ac 400 mcg-vit K 25 mcg tablet (Adults Multivitamin) Allergies Allergy/AdvReac Type Severity Reaction Status Date / Time No Known Allergies Allergy Verified 06/02/24 17:07 Review of Systems Review of Systems: All systems reviewed & are unremarkable except as noted in HPI and below Constitutional: Constitutional: Reports as per HPI, Reports no additional constitutional complaints, Reports body ache(s), Reports headache(s) and Reports lethargy ENT: Reports system reviewed and no additional complaints, except as documented, Reports nasal congestion, Reports nasal discharge, Reports sinus pain and Reports sinus pressure Cardiovascular: Cardiovascular: Reports as per HPI and Reports no additional cardiovascular complaints Respiratory: Respiratory: Reports as per HPI, Reports no additional respiratory complaints, Reports chest congestion, Reports cough, Reports pain with cough and Reports wheezing Gastrointestinal: Gastrointestinal: Reports no additional gastrointestinal complaints Musculoskeletal: Musculoskeletal: Reports back pain and Reports myalgias PMFSH Past Medical History Medical History Healthy female Social History Social History Smoking status: Never smoker Gender identity (if verbalized by the patient): Female Comments At the time of my signature, I reviewed and agree with the nursing past medical, surgical, social, and family history. There is no relevant family history pertinent to the patient complaint. Exam Const: General: cooperative, no acute distress, alert and awake Orientation/consciousness: oriented to person, oriented to place and oriented to time HENMT: Head: normal to inspection Ears: TM abnormal dull bilateral Face and sinus: sinus tenderness frontal and Facial tenderness on exam of face and sinuses Mouth: Yes moist mucous membranes Throat: posterior oropharynx abnormal erythema and postnasal drainage Resp: Effort & Inspection: normal respiratory effort and able to speak in complete sentences Auscultation: clear to auscultation bilaterally, no crackles, no rales, no rhonchi and no wheezes Cardio: Palpation: normal PMI Rate: regular rate Rhythm: regular rhythm Heart sounds: S1 normal heart sound present and S2 normal heart sound present Neuro: General: oriented to person, oriented to place and oriented to time Cranial nerves: Yes CN's II-XII intact bilaterally Psych: Appearance: grossly normal Thought process: Normal thought process present Insight: Good insight present (Psych) Judgement: Good judgement present (Psych) Course Course Level of Care: Express Care Visit Vital Signs Vital signs: Vital Signs Temperature 97.3 F L 06/02/24 17:12 Pulse Rate 93 06/02/24 17:12 Respiratory Rate 18 06/02/24 17:12 Blood Pressure 146/85 H 06/02/24 17:12 Pulse Oximetry 100 06/02/24 17:12 Oxygen Delivery Room Air 06/02/24 17:12 Temperature 97.3 F L 06/02/24 17:12 Pulse Rate 93 06/02/24 17:12 Respiratory Rate 18 06/02/24 17:12 Blood Pressure 146/85 H 06/02/24 17:12 Pulse Oximetry 100 06/02/24 17:12 Oxygen Delivery Room Air 06/02/24 17:12 Reviewed MDM - URI/Sore Throat MDM Narrative Medical decision making narrative: patient with multiple sick contacts, is a student, works at a daycare center. History and exam is consistent with sinusitis, will cover with doxycycline, this wave there is go existing community-acquired pneumonia this will cover that as well. Prednisone burst, albuterol inhaler. Work note for 2 days. Discharge instructions reviewed with patient, as well as provided in writing per nursing staff. The instructions also include specific and strict return/GO TO THE ER as well as f/u information. All questions have been answered, and the patient deny any further questions with discharge and discharge plan. Some parts of this dictation were generated by voice recognition software and may contain typographical and/or grammatical inaccuracies. Differential Diagnosis Differential diagnosis: Likely upper respiratory infection, otitis media, sinusitis, bronchitis and other (pneumonia) Medical Records Attestation: I reviewed the patient's medical records. Discharge Plan Discharge Clinical Impression: Sinusitis Qualifiers: Sinusitis location: frontal Chronicity: acute Recurrence: not specified as recurrent Qualified Code(s): J01.10 - Acute frontal sinusitis, unspecified Patient Disposition: Home, Self-Care Condition: Stable Instructions: Antibiotic Form Additional Instructions: Follow-up with primary care provider. Emergency department for new or worse symptoms. Blood pressure is elevated today at 146/85. Normal blood pressure is 120/80 Patient Language: Guinean Prescriptions: New doxycycline hyclate 100 mg capsule 100 mg PO BID 10 Days Qty: 20 0RF prednisone 50 mg tablet 50 mg PO DAILY Qty: 5 0RF albuterol sulfate [Ventolin HFA] 90 mcg/actuation HFA aerosol inhaler 2 puff inhalation QID PRN (Reason: shortness of breath or wheezing) Qty: 8.5 0RF No Action Adults Multivitamin 18 mg iron-400 mcg-25 mcg Tablet 1 tablet PO DAILY Lo Loestrin Fe 1 mg-10 mcg (24)/10 mcg (2) tablet 1 tablet PO DAILY Linzess 290 mcg capsule 290 mcg DIRECTED Follow-up/Referrals: Ned Stafford MD [Primary Care Provider] - 2 Weeks Stand Alone Forms: Work/School Release IP Time of Disposition: 17:51
== END 2024-06-02 17:52 | disposition home or self-care (01) ==
PROVIDERS: Emergency Provider Nurse Practitioner Family; PCP Internal Medicine
DX: J01.10 Acute frontal sinusitis, unspecified (principal)
CPT/HCPCS: 99213; G0463

== ENCOUNTER 2025-04-21 17:46 | Emergency (ER) | payer OTHER, SELFPAY ==
--- OUTSIDE RECORDS SUMMARY | 2024-04-14 04:20 | XMS_ITS ---
Author Organization [facility] Address [address] [place] [address] Care Team Providers Care Casing In Line Setter Name Role Phone Ned Stafford Primary Care Provider REASON FOR VISIT follow up Social History Sex Assigned At : Social History Observation Description Sex Assigned At Female Encounters Encounter Location Date Provider Diagnosis [address] [place] [address] 04/14/2024 Ned Stafford Plan Of Treatment No Information Progress Notes * Sarah DAMIANOB: 2 (25 yo F)Acc No.[id number]:04/14/2024 UNLOCKED PROGRESS NOTE Progress Notes Patient: Salma AKERS Provider: Den Stafford :2000 A ge:24 Y S ex:Female Date:04/14/2024 Address:[id number] Subjective: * Chief Complaints: * 1 . Follow up. * Medical History: Objective: * Vitals: Assessment: Plan: * Treatment: * * Electronic signature of Alina Stafford , [id number] on 04/21/2025 at 05:48 PM CDT Sign off status: Pending * Provider: Den Stafford Date: 0 04/14/2024 Generated for Ynes witt/Faejg/eTransmitting on: 0 04/21/2025 05:48 PM CDT
--- OUTSIDE RECORDS SUMMARY | 2025-04-21 17:48 | XMS_ITS | Patient Health Record ---
Author Organization Formerly [facility] Address [address] [place] [address] Care Team Providers Care Cask Maker Name Role Phone Ned Stafford Primary Care Provider [phone] Domenico Ornelas Unavailable [phone] Allergies No Known Allergies Reason For Referral No Information Medications Medication SIG (Take, Route, Frequency, Duration) Notes Start Date End Date Status Lactulose Active Lo Loestrin Fe 1 MG-10 MCG / 10 MCG 1 tablet Orally Once a day; Duration: 28 days Active Ibuprofen 800 MG 1 tablet with food or milk as needed Orally every 8 hrs; Duration: 30 days As needed pain 09/16/2024 Active SUMAtriptan Succinate 50 MG 1 tablet at least 2 hours between dosses Orally Twice a day As needed MIGRAINE 02/14/2024 Active linaCLOtide 290 MCG 1 capsule at least 3 0 minutes before the first meal of the day on an empty stomach Orally Once a day; Duration: 30 days 02/14/2024 Active Ketoconazole 2 % ONE APPLICATION Externally TWICE WEEKLY As needed SCALP DERMATITIS 02/14/2024 Active Triamcinolone Acetonide 0.1 % 1 application Externally NIGHTLY As needed SCALP DERMATITIS 02/14/2024 Active Immunizations Vaccine Route Administration Date Status Comme nts FLU VAC NO PRSV 4VAL 6 mo+ IM Intramuscular 05/05/2024 Administered LUZ ELENA Bender Steph anie N 05/05/2024 10:29:46 AM CDT >pt tolerated well. VIS provided and verbal consent given. TB Skin ID Intradermal 05/07/2024 Administered Tdap IM Intramuscular 05/05/2024 Administered Yulia, Kavitha LAGUNA 05/05/2024 10:32:51 AM CDT >VIS given and verbal consent given. Administered to the right deltoid per patient request. Pt tolerated well. Social History Tobacco Use: Social History Observation Description Date Details (start date - stop date) Never Smoker NA - NA Sex Assigned At : Social History Observation Description Sex Assigned At Female Tobacco Control (Standard) Question Answer Notes Tobacco use: Nonsmoker Problems Problem Type SNOMED Code ICD Code Onset Dates Problem Status W/U Status Risk Notes Problem Information temporarily unavailable Migraine (G43.909) Active confirmed Problem Information temporarily unavailable Irregular menses (N92.6) Active confirmed Problem Information temporarily unavailable Chronic fatigue (R53.82) Active confirmed Problem Information temporarily unavailable Irritable bowel syndrome with constipation (K58.9) Active confirmed Vital Signs Heart Rate 66 /min 09/16/2024 Respiratory Rate 18 /min 09/16/2024 Blood pressure diastolic 86 mm Hg 09/16/2024 Oximetry 96 % 09/16/2024 Height 64 in 09/16/2024 Blood pressure systolic 120 mm Hg 09/16/2024 Weight 198.6 lbs 09/16/2024 BMI 34.09 kg/m2 09/16/2024 Encounters Encounter Location Date Provider Diagnosis [address] [address] 05/05/2024 Ned Stafford Encounter for immunization Z23 and Adult general medical exam Z00.[address] [place] [address] 05/07/2024 Ned Stafford [address] [place] [address] 05/09/2024 Ned Stafford [address] [place] [address] 09/16/2024 Ned Stafford Nutritional counseling Z71.3 and De Quervain's disease (tenosynovitis) M65.4 [facility] [address] [address] 04/30/2024 Ned Stafford [address] [place] [address] 05/05/2024 Ned Stafford [address] [place] [address] 05/05/2024 Ned Stafford [facility] [address] [place] [address] 05/06/2024 Domenico Ornelas [address] [place] [address] 09/11/2024 Ned Stafford [address] [place] [address] 04/15/[address] [address] 07/31/2024 Ned Stafford Assessments Encounter Date Diagnosis (ICD Code) Assessment Notes Treatment Notes Treatment Clinical Notes Section Notes 09/16/2024 Nutritional counseling (ICD-10 - Z71.3) 09/16/2024 De Quervain's disease (tenosynovitis) (ICD-10 - M65.4) SENT INFO FROM [facility] ON THIS TOPIC. TIM, REST, NSAID, ICE/HEAT PRN (WHICHEVER FEELS BEST). 05/05/2024 Encounter for immunization (ICD-10 - Z23) Ordered per standing orders for administering influenza vaccine to adults. LUZ ELENA Bender Stephanie N 05/05/2024 10:34:22 AM CDT >Verbal order received to administer Tetanus booster. Verbal order also received for TB skin test; however, pt was unable to return to office in 48-72 hour window for TB read. Pt has been scheduled for Sunday at 08:00 for TB administration and will return Sunday at 08:20 for TB read. 05/05/2024 Adult general medical exam (ICD-10 - Z00.00) FORMS COMPLETED FOR SCHOOL AND WORK. 05/09/2024 Other LUZ ELENA Bender Stephanie N 05/09/2024 09:06:20 AM CDT > TB skin test read. 0mm induration. See Immunizations documentation. Pt school forms completed (see pt docs) and original given back to patient. 05/07/2024 Other LUZ ELENA Bender Stephanie N 05/07/2024 08:33:07 AM CDT >Verbal order given during visit with Dr. Stafford on 05/05/24. 1 step TB test needed for school health screening. Plan Of Treatment No Information Insurance Providers Payer Name Payer Address Payer Phone Subscriber Number Group Number Insured Name Patient Relationship to Insured Coverage Start Date Coverage End Date [address] [phone] [id number] Salma Damian Self - patient is the insured 4
--- OUTSIDE RECORDS SUMMARY | 2025-04-21 17:48 | XMS_ITS | Encounter Summary ---
Author Organization [facility] Address [address] [place] [address] Phone Care Team Providers Care Plant Ecologist Name Role Phone Unavailable Primary Care Provider Unavailabl e Encounter Details Date Type Department Care Team (Late st Contact Info) Description 10/13/2024 Lab Requisition [facility] [address] [place] [address] Aurea Girard, OYSTER WASHER, AUTO RESEARCH ENGINEER [address] [place] [address] Social History Tobacco Use Types Packs/Day Years Used Date Smoking Tobacco: Never Assessed Comments Unknown Sex and Gender Information Value Date Recorded Sex Assigned at Not on file Legal Sex Female 11:18 AM CDT Gender Identity Not on file Sexual Orientation Not on file documented as of this encounter Plan of Treatment Not on file documented as of this encounter Procedures Procedure Name Priority Date/Time Associated Diagnosis Comments HEPATITIS B SURFACE ANTIBODY (HBSAB) Routine 10/13/2024 10:45 AM CDT QUANTIFERON-TB GOLD PLUS Routine 10/13/2024 10:30 AM CDT MMRV PANEL Routine 10/13/2024 10:30 AM CDT MUMPS IGG Routine 10/13/2024 10:30 AM CDT HERPES ZOSTER (VARICELLA) IGG Routine 10/13/2024 10:30 AM CDT RUBEOLA (MEASLES) IGG Routine 10/13/2024 10:30 AM CDT RUBELLA IMMUNITY IGG Routine 10/13/2024 10:30 AM CDT documented in this encounter Results * HEPATITIS B SURFACE ANTIBODY (HBSAB) (10/13/2024 10:45 AM CDT) HEPATITIS B SURFACE ANTIBODY <8.00 mIU/mL 10/14/2024 4:06 AM CDT [facility] Comment:Individual is consid ered not immune to HBV infection. Blood Venipuncture / Unknown 10/13/2024 10:45 AM CDT 10/13/2024 12:57 PM CDT us Aurea Girard OYSTER WASHER, AUTO RESEARCH ENGINEER CHEMISTRY ORDERABLE S Final Result [facility] [address] [id number], [place] * QUANTIFERON-TB GOLD PLUS (10/13/2024 10:30 AM CDT) NIL CONTROL 0.05 <8.01 IU/mL 10/15/2024 10:25 AM CDT [facility] TB ANTIGEN 1 0.01 <0.35 IU/mL 10/15/2024 10:25 AM CDT [facility] TB ANTIGEN 2 0.00 <0.35 IU/mL 10/15/2024 10:25 AM CDT [facility] MITOGEN CONTROL 9.95 >0.49 IU/mL 10/16/19 10:25 AM CDT [facility] INTEPRETATION TB NEGATIVE NEGATIVE, NEGATIVE (TB antigen response less than 25% of internal negative control value) 10/15/2024 10:25 AM CDT [facility] Comment:No immune response t o Mycobacterium tuberculosis antigens was noted. M. tuberculosis infection unlikely. Blood Venipuncture / Unknown 10/13/2024 10:30 AM CDT 10/13/2024 12:57 PM CDT Narrative [facility] - 10/15/2024 10:25 AM CDT A POSITIVE QUANTIFERON-TB GOLD PLUS RESULT SHOULD NOT BE THE SOLE OR DEFINITIVE BASIS FOR DETERMINING INFECTION WITH M.TUBERCULOSIS. Diagnosing or excluding tuberculosis disease, and assessing the probability of LTBI, requires a combination of epidemiological, historical, medical and diagnostic findings (e.g., acid fast bacilli (AFB) smear and culture, chest xray) that should be taken into account when interpreting QFT-Plus results. Furthermore, the magnitude of the measured gamma interferon level cannot be correlated to stage or degree of infection, level of immune responsiveness, or likelihood for progression to active disease. The Nil control adjusts for background (e.g., elevated levels of circulating gamma interferon or presence of heterophile antibodies). The Mitogen control serves as an internal positive control and verifies each specimen tested can produce a gamma interferon response. Low mitogen may occur with insufficient lymphocytes, reduced lymphocyte activity due to improper specimen handling, filling/mixing of the mitogen tube, or inability of the patient's lymphocytes to generate gamma interferon. Infection with other Mycobacteria, including M. kansasii, M. szulgai, and M. marinum, may cause false positive results. A negative QuantiFERON-TB Gold Plus result does not preclude the possibility of M. tuberculosis infection or tuberculosis disease: false negative results can be due to incorrect blood sample collection/ improper handling of the specimen, stage of infection (e.g., specimen obtained prior to the development of cellular immune response), co-morbid conditions which affect immune function, or other individual immunological factors. The minimum number of lymphocytes required for a reliable test has not been established and may also be variable. Diagnostic testing for Mycobacterium tuberculosis using Interferon Gamma Release Assays should follow applicable published guidelines, including when testing in populations such as children, women, and HIV-infected or otherwise immunocompromised individuals. https://www.cdc.gov/tb/publications/guidelines/testing.htm us Aurea Girard APRN, YOAV IMMUNOLOGY ORDERABL ES Final Result [facility] [address] [place] [address], * (ABNORMAL) HERPES ZOSTER (VARICELLA) IGG (10/13/2024 10:30 AM CDT) VARICELLA ZOSTER IGG 0.2(L) >=1.1 AI 10/13/2024 11:41 PM CDT [facility] Blood Venipuncture / Unknown 10/13/2024 10:30 AM CDT 10/13/2024 12:56 PM CDT Narrative [facility] - 10/13/2024 11:41 PM CDT <= 0.8 Negative. No detectable VZV IgG antibody. 0.9 - 1.0 Equivocal >=1.1 Positive Antibody testing was performed by multiplex flow immunoassay on the BioPlex platform. us Aurea L Behrends OYSTER WASHER, AUTO RESEARCH ENGINEER IMMUNOLOGY ORDERABL ES Final Result Performing Organization Address City/[facility]/ZIP Co de Phone Number [facility] [address] [place] [address], [place] * RUBEOLA (MEASLES) IGG (10/13/2024 10:30 AM CDT) MEASLES AB IGG 5.2 >=1.1 AI 10/13/2024 11:41 PM CDT [facility] Blood Venipuncture / Unknown 10/13/2024 10:30 AM CDT 10/13/2024 12:56 PM CDT Narrative [facility] - 10/13/2024 11:41 PM CDT <= 0.8 Negative. No detectable Measles IgG antibody. 0.9 - 1.0 Equivocal >=1.1 Positive Antibody testing was performed by multiplex flow immunoassay on the BioPlex platform. us Aurea L Behrends OYSTER WASHER, AUTO RESEARCH ENGINEER IMMUNOLOGY ORDERABL ES Final Result [facility] [address] [place] [address], [place] * RUBELLA IMMUNITY IGG (10/13/2024 10:30 AM CDT) RUBELLA IMMUNITY Immune Immune, Invalid 10/13/2024 11:41 PM CDT [facility] RUBELLA IGG QUANT 1.50 >=1.0 AI AI 10/13/2024 11:41 PM CDT [facility] Blood Venipuncture / Unknown 10/13/2024 10:30 AM CDT 10/13/2024 12:56 PM CDT Narrative [facility] - 10/13/2024 11:41 PM CDT Antibody testing was performed by multiplex flow immunoassay on the BioPlex platform. us Aurea Rekha Girard APRN, AUTO RESEARCH ENGINEER CHEMISTRY ORDERABLE S Final Result Performing Organization Address [facility] de Phone Number [facility] [address] [place] [address], [place] * (ABNORMAL) MUMPS IGG (10/13/2024 10:30 AM CDT) Mumps Ab IgG 1.0(L) >=1.1 AI 10/13/2024 11:41 PM CDT [facility] Blood Venipuncture / Unknown 10/13/2024 10:30 AM CDT 10/13/2024 12:56 PM CDT Narrative [facility] - 10/13/2024 11:41 PM CDT <= 0.8 Negative. No detectable Mumps IgG antibody. 0.9 - 1.0 Equivocal >=1.1 Positive Antibody testing was performed by multiplex flow immunoassay on the BioPlex platform. us Aurea Rekha Girard APRN, AUTO RESEARCH ENGINEER IMMUNOLOGY ORDERABL ES Final Result Performing Organization Address [facility] Co de Phone Number [facility] [address] [place] [address], [place] documented in this encounter Visit Diagnoses Not on filedocumented in this encounter
--- OUTSIDE RECORDS SUMMARY | 2025-04-21 17:48 | XMS_ITS | Clinical Summary ---
Author Organization [facility] Address [address] [place] [address] Phone Care Team Providers Care Carry Out Clerk And Shelf Stocker Name Role Phone Unavailable Primary Care Provider Unavailabl e Social History Tobacco Use Types Packs/Day Years Used Date Smoking Tobacco: Never Assessed Comments Unknown Sex and Gender Information Value Date Recorded Sex Assigned at Not on file Legal Sex Female 11:18 AM CDT Gender Identity Not on file Sexual Orientation Not on file Plan of Treatment Health Maintenance Due Date Last Done Comments Hepatitis C Virus (HCV) Screening 2002 Meningococcal B Immunization (1 of 2 - Standard) 2018 Pap Smear 2023 Influenza Immunization (#1) 03/23/202504/22, 08/31/2015, 07/13/2014, Additional history exists SARS-COV-2 Immunization (2024- season) 2025 12/06/2020, 11/13/2020 Respiratory Syncytial Virus (RSV) Immunization (Adult) (1 - 1-dose 75+ series) 2077 Pneumococcal Immunization Combined Aged Out 2002, 2002 No longer eligibl e based on patient's age to complete this topic Hepatitis B Immunization Completed 003, 04/21/2003, 2002, Additional history exists Human Papillomavirus (HPV) Immunization Completed 08/31/2015, 06/03/2013, 04/01/2013 Meningococcal Immunization (ACWY) Completed 04/17/2019, 04/01/2013 TdaP Immunization Completed 05/05/2024, 04/01/2013 Rotavirus Immunization Aged Out No lo nger eligible based on patient's age to complete this topic
--- OUTSIDE RECORDS SUMMARY | 2025-04-21 17:48 | XMS_ITS | Data Portability ---
Author Organization [facility] [place] Address [address] [place] [address] [place] [address] Care Team Providers Care Drag Down Name Role Phone ROSALINO TATY Primary Care Provider Assessment Encounter Date Assessment Date Assessment LastModified by Organization Details LastModified Time 07/09/2024 07/09/2024 Annual gynecological exam performed. Patient will come back in a year unless there are new symptoms. Not available 07/09/2024 09:52:59 Plan of Treatment Reminders Order Date Submit Date Provider Last Modified By Organization Details Last Modified Time Details Appointments None recorded. Lab urinalysis, dipstick 2024 025 [email or web address] [address], [address], [place], [address], 11:06:43 unlisted lab - women's health swab plus, ASHOK 2024 025 [facility] (Lab), [address] , [place], [address], 5 06:40:57 culture, urine 2024 025 [facility] (Lab), [address], [place], [address], 5 06:40:58 test, urine 2023 024 [email or web address] [id number] [address], [address], [place], [address], 4 10:00:13 Referral None recorded. Procedures None recorded. Surgeries None recorded. Imaging None recorded. Medication Orders metronidazo le 500 mg tablet 2024 025 [facility] #[id number], [address], [place], [place], [id number], 5 11:23:23 Lo Loestrin Fe 1 mg-10 mcg (24)/10 mcg (2) tablet 2023 025 [facility] #[id number], [address], [place], [place], [id number], 5 10:55:50 Patient TargetsNo targets recorded. Patient InstructionsNo instructions recorded. Reason for Referral None Reported. Results Created Date Observation Date Name Description Value Unit Range Abnormal Flag Note LastModifiedBy Organization Detail LastModifiedTime 07/09/20 24 07/09/2024 CT/GC AND TRICH OMONA S VAGIN ISH (RRNA ), URINE chlamydia trachomatis, PCR Negati ve negati ve Not Available [facility] (Lab) [address], [place], [address], 07/10/2024 12:02:05 07/09/20 24 07/09/2024 CT/GC AND TRICH OMONA S VAGIN ISH (RRNA ), URINE neisseria gonorrhoeae, PCR Negati ve negati ve Not Available [facility] (Lab) [address], [place], [address], 07/10/2024 12:02:05 07/09/20 24 07/09/2024 CT/GC AND TRICH OMONA S VAGIN ISH (RRNA ), URINE trichomonas vaginalis ribosomal RNA (rrna) Negati ve negati ve Not Available [facility] (Lab) [address], [place], [address], 07/10/2024 12:02:05 07/09/20 24 07/09/2024 pregn cassie test, urine HCG negati ve Not Available [place] [address], [place], [address], 07/09/2024 09:59:47 04/08/2004/08/2025 [facility], ASHOK bacterial vaginosis (bv), tma Negati ve negati ve Not Available [facility] (Lab) [address], [place], [address], 04/10/2025 06:40:57 04/08/2004/08/2025 [facility]AB [facility], ASHOK aydee species, tma Negati ve negati ve Not Available [facility] (Lab) [address], [place], [address], 04/10/2025 06:40:57 04/08/20 25 04/08/2025 [facility] H SWAB PL[facility], ASHOK aydee glabrata, tma Negati ve negati ve Not Available [facility] (Lab) [address], [place], [address], 04/10/2025 06:40:57 04/08/20 25 04/08/2025 [facility] ASHOK trichomonas vaginalis, tma Negati ve negati ve Not Available [facility] (Lab) [address], [place], [address], 04/10/2025 06:40:57 04/08/2004/08/2025 [facility] ASHOK chlamydia trachomatis, PCR Negati ve negati ve Not Available [facility] (Lab) [address] [place], [address], 04/10/2025 06:40:57 04/08/20 25 04/08/2025 [facility] SWAB PL[facility], ASHOK neisseria gonorrhoeae, PCR Negati ve negati ve Bacte rial vagin osis detec ts the follo wing bacte lilly assoc iated with bacte rial vagin osis (BV): Lacto bacil adis (L. gasse ri, L. crisp atus and L. jense alexandru), Gardn erell a vagin ish, and Atopo bium vagin ae. A singl e quali tativ e resul t is repor blue base on instr ument softw are to deter mine BV posit godfrey or negat godfrey statu s. The J[facility]min da speci es group tests for C. albic ans, C. tropi calis , C. parap mona is, C. dubli niens is. Testi ng is perfo rmed using the Trans cript ion Media blue Ampli ficat ion metho d. Tests for Jasmin da glabr robin, Trich omona s vagin ish, Chlam ydia trach omati s, and Neiss eria gonor rhoea e are also inclu ded in this panel . Not Available [facility] (Lab) [address], [place], [address], 04/10/2025 06:40:57 04/08/2004/08/2025 CULTU RE: URINE result report SEE RESULT S BELOW Test: Cultu re: Urine Speci men Sourc e: Urine Voide d Speci men Type: Urine Speci men Date: 2024 1143 Resul t Date: 2024 0537 Resul t Statu s: Final resul t Abnor mal: No Resul ting Lab: [facility] [address] [facility] [address] Tel: CULTU RE ----- ----- ----- --- No growt h in 1 day (dete ction level of 10,00 0 colon ies / ml.) Not Available [facility] (Lab) [address], [place], [address], 04/10/2025 06:40:58 04/08/2004/08/2025 urina lysis , dipst ick Leukocytes Tr Not Available [facility] [address], [place], [address], 04/08/2025 11:05:52 04/08/20 25 04/08/2025 urina lysis , dipst ick Nitrite - Not Available [place] [address], [place], [address], 04/08/2025 11:05:52 04/08/20 25 04/08/2025 urina lysis , dipst ick Urobilinogen Normal Not Available [facility] [place] [address], [place], [address], 04/08/2025 11:05:52 04/08/20 25 04/08/2025 urina lysis , dipst ick Protein Tr Not Available [place] [address], [place], [address], 04/08/2025 11:05:52 04/08/20 25 04/08/2025 urina lysis , dipst ick pH 7 Not Available [place] [address], [place], [address], 04/08/2025 11:05:52 04/08/20 25 04/08/2025 urina lysis , dipst ick Specific [address] 1.015 Not Available [facility] [address], [place], [address], 04/08/2025 11:05:52 04/08/20 25 04/08/2025 urina lysis , dipst ick Ketone - Not Available [place] [address], [place], [address], 04/08/2025 11:05:52 04/08/20 25 04/08/2025 urina lysis , dipst ick Bilirubin - Not Available [facility] [address], [place], [address], 04/08/2025 11:05:52 04/08/2004/08/2025 urina lysis , dipst ick Glucose Normal Not Available [place] [address], [place], [address], 04/08/2025 11:05:52 04/08/2004/08/2025 urina lysis , dipst ick Appearance cloudy Not Available [facility] [address], [place], [address], 04/08/2025 11:05:52 04/08/20 25 04/08/2025 urina lysis , dipst ick Color dark yellow Not Available [place] [address], [place], [address], 04/08/2025 11:05:52 Result Notes None recorded. Problems Name Problem SNOMED Code Status Onset Date Resolution Date Notes Provider Name and Address Organization Details Recorded Time Irritable bowel syndrome [id number] Active 024 Lizett Remy [facility] 4 09:55:43 Problem Notes None recorded. Procedures Surgical History Date Name Laterality Status Provider Name and Address Organization Details Recorded Time 4 Date of Last Pap Smear completed Lizett Remy [facility] 07/09/2024 11:04:35 2 extraction of wisdom tooth completed Lizettjan Remy [facility] 07/09/2024 09:59:08 Imaging Results None recorded. Procedure Notes None recorded. Medical Equipment None Reported. Allergies No known drug allergies Medications Name Sig Start Date Stop Date Status Note LastModified by Organization Details LastModified Time status covid-19/fl u a-b antigen tst TEST DIRECTED TODAY 07/09 completed Not Available Not Available Not Available doxycycline hyclate 100 mg capsule TAKE 1 CAPSULE BY MOUTH TWICE DAILY FOR 10 DAYS 07/09 completed Not Available Not Available Not Available ketoconazol e 2 % shampoo APPLY TO SCALP WHILE WASHING TWICE A WEEK DIRECTED 07/09 completed Not Available Not Available Not Available azithromyci n 250 mg tablet TAKE 2 TABLETS BY MOUTH ON DAY ONE THEN TAKE 1 TABLET BY MOUTH EVERY DAY FOR THE 4 DAYS 07/09 completed Not Available Not Available Not Available ibuprofen 800 mg tablet TAKE 1 TABLET BY MOUTH EVERY 8 HOURS WITH FOOD OR MILK NEEDED FOR PAIN active Not Available Not Available No t Available sumatriptan 50 mg tablet TAKE 1 TABLET BY MOUTH AT ONSET OF HEADACHE AT LEAST 2 HOURS BETWEEN DOSES NEEDED 07/09 completed Not Available Not Available Not Available metronidazo le 500 mg tablet TAKE 1 TABLET BY MOUTH TWICE DAILY FOR 7 DAYS active Not Available Not Available No t Available benzonatate 100 mg capsule TAKE 1 CAPSULE BY MOUTH TWICE DAILY NEEDED FOR COUGH 07/09 completed Not Available Not Available Not Available prednisone 50 mg tablet TAKE 1 TABLET BY MOUTH DAILY 07/09 completed Not Available Not Available Not Available amoxicillin 400 mg/5 mL oral suspension 07/09 completed Not Available Not Available Not Available triamcinolo ne acetonide 0.1 % lotion APPLY TOPICALLY TO THE SCALP EVERY NIGHT NEEDED FOR DERMATITI S 07/09 completed Not Available Not Available Not Available methylpredn isolone 4 mg tablets in a dose pack FOLLOW PACKAGE DIRECTION S 07/09 completed Not Available Not Available Not Available albuterol sulfate HFA 90 mcg/actuati on aerosol inhaler INHALE 2 PUFFS BY MOUTH FOUR TIMES DAILY NEEDED FOR SHORTNESS OF BREATH OR WHEEZING active Not Available Not Available No t Available ProChamber USE DIRECTED 07/09 completed Not Available Not Available Not Available Lo Loestrin Fe 1 mg-10 mcg (24)/10 mcg (2) tablet TAKE 1 TABLET BY MOUTH DAILY 04/08 completed Not Available Not Available Not Available Linzess 290 mcg capsule TAKE 1 CAPSULE BY MOUTH DAILY 30 MINUTES BEFORE FIRST MEAL OF THE DAY ON AN EMPTY STOMACH active Not Available Not Available No t Available Vitals Date Recorded Body height Body mass index (BMI) Body weight Systolic And Diastolic Provider Name and Address Organization Details Last Updated DateTime 04/08/2025 158.75 cm 35.5 kg/m2 35675.7 g 120/74 mm[Hg] Dede Francois [facility] 04/08/2025 10:54:57 Date Recorded Body height Body mass index (BMI) Body weight Systolic And Diastolic Provider Name and Address Organization Details Last Updated DateTime 07/09/2024 158.75 cm 34.4 kg/m2 74189.14 g 126/76 mm[Hg] Lizett Remy [facility] 07/09/2024 09:54:31 Social History Question Answer Notes LastModified by Organizat ion Details LastModified Time Tobacco Smoking Status Former Smoker Lizett Remy [facility], [facility] 07/09/2024 09:58:33 Do You Have An Advance Directive? No [email or web address] Information n ot available 04/08/2025 How Many Years Have You Consumed Alcohol? 0 Information not available 04/08/2025 Are You Blind Or Do You Have Difficulty Seeing? No [email or web address] Information n ot available 07/09/2024 What Is Your Level Of Caffeine Consumption? Heavy Information not available 04/08/2025 How Much Tobacco Do You Chew? None [email or web address] Information not available 04/08/2025 In The 14 Days Before Symptom Onset, Have You Had Close Contact With A Laboratory-confirm ed COVID-19 While That Case Was Ill? No [email or web address] Information n ot available 07/09/2024 In The 14 Days Before Symptom Onset, Have You Had Close Contact With A Person Who Is Under Investigation For COVID-19 While That Person Was Ill? No [email or web address] Information not available 07/09/2024 Have You Been To An Area Known To Be High Risk For COVID-19? No Information not available 07/09/2024 Are You Deaf Or Do You Have Serious Difficulty Hearing? No [email or web address] Information not available 07/09/2024 What Type Of Diet Are You Following? REGULAR [email or web address] Information n ot available 07/09/2024 What Is The Highest Grade Or Level Of School You Have Completed Or The Highest Degree You Have Received? [id number] [email or web address] Information not available 04/08/2025 Are There Any Guns Present In Your Home? No [email or web address] Information not available 04/08/2025 Do You Use Protection During Sex? No [email or web address] Information not available 04/08/2025 Do You Use Your Seat Belt Or Car Seat Routinely? Yes [email or web address] Information not available 04/08/2025 Do You Have Smoke And Carbon Monoxide Detectors In Your Home? Yes [email or web address] Information not available 07/09/2024 How Much Tobacco Do You Smoke? No [email or web address] Information not available 04/08/2025 Do You Use Sunscreen Routinely? No [email or web address] Information not available 04/08/2025 Has Tobacco Cessation Counseling Been Provided? No [email or web address] Information not available 07/09/2024 Have You Used IV Drugs? No Information not available 04/08/2025 Do You Have Difficulty Walking Or Climbing Stairs? No [email or web address] Information not available 07/09/2024 Sex: Unknown Functional Status Question Answer Note LastModified by Organizat ion Details LastModified Time Do you use any illicit or recreational drugs? No [email or web address] Information not available 07/09/2024 Do you or have you ever used any other forms of tobacco or nicotine? No [email or web address] Information not available 07/09/2024 What is your level of alcohol consumption? Occasional [email or web address] Information not available 04/08/2025 Are you able to walk independently without assistance or assistive devices? YESWOREST [email or web address] Information not available 07/09/2024 Are you able to care for yourself independently? 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 No [email or web address] Information not available 07/09/2024 What is your exercise level? Occasional [email or web address] Information not available 07/09/2024 Mental Status Question Answer Note LastModified by Organization D etails LastModified Time Do you feel stressed (tense, restless, nervous, or anxious, or unable to sleep at night)? [id number] Information not available 04/08/2025 Family History Relationship Description Onset Age of this Age Resolved Age Notes LastModified by Organization Details LastModified Time Sister Disorder of ovary [email or web address] Not available 07/09 09:57:55 Medical History Condition Response Allergies (Food, seasonal, environmental ) N Other N Breast Cancer N Drug/Latex Allergies/Reactions N Blood Transfusion N Dermatologic Disorders N Lung Disease N Defects or Inherited Disease N Breast Problem N Gestational Diabetes N Hematologic disorders N Anesthesia Complications N History of STI N Deep Vein Thrombosis N Polycystic ovary syndrome N Anxiety Disorder N Autoimmune disease N Arthritis N Infertility N Polyps N Acid Reflux (GERD) N History of abnormal pap N Cancer N Stroke N Varicosities N Neurologic/Epilepsy N Endometriosis N High Cholesterol N Headaches Y Fibromyalgia N Kidney Disease N Heart Problems N Kidney or Bladder Problems N Thyroid Problems N GI Problems Y Eating Disorder N Anemia N Art (IVF or FET) N Psychiatric Illness N Ovarian Cancer N Diabetes N Pulmonary (TB, Asthma) N Hepatitis/Liver Disease N No Past Medical History N Eczema N Urinary Tract Infection N Abuse/Domestic Violence N Asthma N Trauma/Violence N Depression/ depression N Heart Disease N Pre-Eclampsia N Hypertension N Osteoporosis N Thrombophilias N Gynecological History Statement/Question Response Abnormal Pap N Flow Moderate Date of Last Mammogram Date of LMP 03/24/2025 N Was last menstrual period normal Y STIs/STDs Y HPV Vaccine N Colposcopy Duration of Flow (days) 5 Current Control Method None Are cycles usually normal Y Date of Last Colonoscopy Frequency of Cycle (Q days) 28 Sexually Active? Y Menses Monthly Y Date of DEXA bone scan Age of first menstrual cycle 14 Date of Last Pap Smear 07/09/2024 Sexual Problems? N LMP Approximate N Obstetrics History GPAL:G 0 P 0 0 0 0 Type Value Living 0 Total 0 Past Encounters Encounter ID Performer Location Encounter Start Date Encounter Closed Date Diagnosis/Indication Diagnosis SNOMED-CT Code Diagnosis ICD10 Code Diagnosis IMO Codes Diagnosis Note [id number] RADHA Iglesias [place] [address] [address] 07/09/2024 09:10:57 07/09/2024 10:13:02 Contraception care management 149362097 Z30.9 Gynecologi c examination 22559179 Z01.419 WWEBC - OCP, refills sent, r/b/a reviewedPa p - due next 2025, records release signed and fax for pap result done screen - gc/ct/tric h urine testing sentRoutin e labs - PCPRTC in 1 yr or sooner if needed It is strongly advised to have an annual flu shot and up can obtain at most pharmacies . If you have not had a TDap shot in the last 10 years you should obtain one as well. Discussed with patient & provided with informatio n regarding the HPV vaccine if applicable . Encourage safe sexual practices, to use condoms and limit partners if not already in a monogamous relationsh ip. Do monthly self breast exams. BRCA testing is now available for patients with strong genetic history of female cancer. If interested contact the office. Engage in regular exercise. Avoid tobacco and illicit drugs. This lifestyle behavior pattern will lead to less health conditions and longer life span. If BMI greater than 25 dietary consult advised. Questions answered. Venereal d isease screening 137066742 Z11.3 [id number] RADHA Iglesias [place] [address] [address] 04/08/2025 10:36:07 04/08/2025 11:45:01 Acute vaginitis 46404920 N76.0 86028 vaginitis/ STI panel sentRx sent for BV, r/b/a reviewedvu lvar care guidelines reviewed - discussed probiotics and vaginal boric acid suppositor iesRTC for WWE Time spent in visit is a total of 20 mins with at least 50% of visit consisting of counseling and review of plan of care. Venereal d isease screening 026672740 Z11.3 08705 Health Concerns Section Related Observation LastModified by Organization Detai ls LastModified Time None Recorded Concern Status LastModified by Organization Details LastModified Time None Recorded Advance Directives Directive N: Payers Insurance Date Sequence Insurance Name Policy Number Policy Ferguson Covered Member ID Ferguson Member ID Guarantor Name 04/02/2025 1 [facility] (MEDICAID HMO) [id number] Salmaav Damian [id number] Salma Damian 04/07/2025 1 [place] [employer] [facility] [id number] [facility] Notes Date Note Type Note Provider Name and Address Organization Details Recorded Time 4 text/html Annual GYNReported by PatientGenitourinary symptomsFor menstrual cycle, patient reportsnormal menses. For urinary symptoms, patient reportsno hematuriaandno incontinence. For vulva, patient reportsno genital lesion. For vagina, patient reportsnormal vaginal discharge.Breast symptomsFor breast, patient reportsno breast pain,no breast lump, andno nipple discharge.ContraceptionFo r current contraception, patient reportssatisfied with current contraceptionandoral contraceptives.Endocrine symptomsFor sexual complaints, patient reportsno sexual complaints,no pain during intercourse, andnormal libido. For menopausal symptoms, patient reportsno menopausal symptomsandnormal vaginal lubrication.Psychological symptomsFor psychological symptoms, patient reportsno depression,no anxiety, andno pmdd.Preventative measuresFor preventive measures, patient reportsencourage self breast examination,encourage regular exercise,encourage no tobacco use, andencourage regular mammograms starting age 40.24yo [email or web address] - OCPlast pap 03/2023 : normal per ptno abnormal pap hxdenies h/o dvt/PE, HTN, Stroke/NC, cancer, liver disease, or migraine with aura Tania Diaz, RADHA [address], [place], [address], [facility] 07/09/2024 10:12:04 5 text/html Vaginal/Vulvar ProblemReported by Patient 25yoHere today with c/o vaginal odor and increased dischargefishy odor, white d/cSA with steady partner, no new partners, would like STI testing today Dede garay, [facility] 04/08/2025 12:13:14 OBGyn Episode No OBEpisode recorded.
--- OUTSIDE RECORDS SUMMARY | 2025-04-21 17:49 | XMS_ITS | Clinical Summary ---
Author Organization [facility] Address [address] [place] [address] Care Team Providers Care Insurance Policy Issue Clerk Name Role Phone Ekaterina Braswell MD Primary Care Provider Unavail able Rajni Tavares PA Unavailable [phone] Allergies No known active allergies Medications ondansetron (ZOFRAN-ODT) 4 MG disintegrating tablet Take 1 tablet (4 mg total) by mouth every 6 (six) hours as needed for Nausea. 20 tablet 2 Active diclofenac EC (VOLTAREN) 75 MG tablet Take 1 tablet (75 mg total) by mouth 2 (two) times daily. 28 tablet 2 Active Social History Tobacco Use Types Packs/Day Years Used Date Smoking Tobacco: Every Day Smokeless Tobacco: Never Alcohol Use Standard Drinks/Week Comments Not Currently 0 (1 standard drink = 0.6 oz pur e alcohol) Comments No Sex and Gender Information Value Date Recorded Sex Assigned at Not on file Legal Sex Female 3:24 PM CDT Gender Identity Not on file Sexual Orientation Not on file Last Filed Vital Signs Vital Sign Reading Time Taken Comments Blood Pressure 135/73 08/21/2023 2:45 PM [employer]OR SERVIC[employer]AN Pulse 79 08/21/2023 2:45 PM [employer]OR SERVIC[employer]AN Temperature 36.8 C (98.2 F) 08/21/2023 12:12 PM [employer]OR SERVICEMAN Respiratory Rate 18 08/21/2023 2:45 PM DOOR SERVICEMAN Oxygen Saturation 100% 08/21/2023 2:45 PM DOOR SERVICEMAN Inhaled Oxygen Concentration - - Weight 81.6 kg (180 lb) 08/21/2023 12:07 PM DOOR SERVICEMAN Height 162.6 cm (5' 4) 08/21/2023 12:07 PM DOOR SERVICEMAN Body Mass Index 30.9 08/21/2023 12:07 PM DOOR SERVICEMAN Plan of Treatment Health Maintenance Due Date Last Done Comments Cervical Cancer Screening Pap Smear (Age 21 to 29) Every 3 Years 2002 Cervical Cancer Screening 2002 Annual Physical 2005 Chlamydia Screening Females ages 16-24 2018 Meningococcal B Vaccine (1 of 2 - Standard) 2018 Hepatitis C 2020 Pneumococcal Vaccine: Pediatrics (0 to 5 Years) and At-Risk Patients (6 to 49 Years) (1 of 2 - PCV) 2021 2002, 2002 DTaP, Tdap and Td Vaccines (7 - Td or Tdap) 04/01/2023 04/01/2013, 03/22/2007, 10/19/2004, Additional history exists COVID-19 Vaccine ( season) 2025 12/06/2020, 11/13/2020 Hepatitis B Vaccines Completed 04/21/2003, 2002, 2002 HPV Vaccines Completed 08/31/2015, 05/23, 04/01/2013 Meningococcal Vaccine Completed 04/17/2019, 013 RSV Immunizations Under 20 Months Aged Out No longer eligible based on patient's age to complete this topic Insurance [employer] Care Teams Insurance Policy Issue Clerk Relationship Specialty Start Date End Date Ekaterina Braswell MD PCP - General INTERNAL MEDICINE 04/25/22 Rajni Tavares PA [address] [place] [address] PHYSICIAN INTERPRETIVE PROGRAM COORDINATOR 08/21/23
[2025-04-21 17:51] VITALS: BP 143/75; PULSE 80; RESP 20; TEMP 36.3; O2SAT 100
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
== END 2025-04-21 18:35 | disposition home or self-care (01) ==
PROVIDERS: Emergency Provider Nurse Practitioner; PCP Internal Medicine
DX: M43.6 Torticollis (principal); M54.2 Cervicalgia; V49.9XXD Car occupant (driver) (passenger) injured in unspecified traffic accident, subsequent encounter
CPT/HCPCS: 99213; G0463